=== PATIENT | female | born 1970 | race African-American/Black ===

== ENCOUNTER 2018-08-24 10:19 | Inpatient (IN) | payer OTHER ==
[2018-08-24] MEDS: LACTATED RINGER'S 1,000 ML IV ×3 (06:00→17:58)
[~2018-08-24 10:19] MED LIST: CEFAZOLIN 2 GM/50 ML (PMX) 50 ML IVPB
[2018-08-24 11:33] LABS: ADD MAN DIFF? NO
[2018-08-24 11:35] LABS: ABNORMAL IP MESSAGE 1; BASOPHIL # 0.1 10^3/ul (0.0-0.1); BASOPHILS % 1.2 % (0.0-2.0); EOSINOPHILS # 0.1 10^3/ul (0.0-0.5); EOSINOPHILS % 1.2 % (0.0-7.0); HEMATOCRIT 38.3 % (37.0-47.0); HEMOGLOBIN 11.5 g/dl (12.0-16.0); LYMPHOCYTES # 1.6 10^3/ul (0.8-2.9); LYMPHOCYTES % 36.3 % (15.0-51.0); MEAN CORPUSCULAR HEMOGLOBIN 21.5 pg (29.0-33.0); MEAN CORPUSCULAR VOLUME 71.5 fl (82.0-101.0); MEAN PLATELET VOLUME 8.6 fl (7.4-10.4); MONOCYTE # 0.3 10^3/ul (0.3-0.9); MONOCYTES % 7.2 % (0.0-11.0); NEUTROPHIL # 2.3 10^3/ul (1.6-7.5); NEUTROPHILS % 54.1 % (39.0-77.0); PLATELET COUNT 404 10^3/UL (140-415); RED BLOOD COUNT 5.36 10^6/ul (4.20-5.40); RED CELL DISTRIBUTION WIDTH 30.3 % (11.5-14.5)
[2018-08-24 11:35] LABS: WHITE BLOOD COUNT 4.3 10^3/ul (4.8-10.8)
[2018-08-24 11:47] LABS: HOLD TRANSMISSIONS 1; POSITIVE DIFF @See below
[2018-08-24 11:56] LABS: ANION GAP 12 (8-16); BILIRUBIN,TOTAL 0.4 mg/dl (0.2-1.3)
[2018-08-24 12:01] LABS: INR 0.99; PARTIAL THROMBOPLASTIN TIME 27.6 Sec (23.0-35.0); PROTIME 13.2 Sec (11.9-14.9)
[2018-08-24 12:08] LABS: ALANINE AMINOTRANSFERASE 24 IU/L (13-69); ALKALINE PHOSPHATASE 37 IU/L (42-121); ASPARTATE AMINO TRANSFERASE 24 IU/L (15-46); BILIRUBIN,INDIRECT 0.4 mg/dl (0-1.1); BLOOD UREA NITROGEN 8 mg/dl (7-20); CALCIUM 9.1 mg/dl (8.4-10.2); CARBON DIOXIDE 26 mmol/L (21-31); CHLORIDE 106 mmol/L (97-110); CREATININE 0.67 mg/dl (0.44-1.00); GLUCOSE 82 mg/dl (70-220); SODIUM 140 mmol/L (135-144); TOTAL PROTEIN 7.4 g/dl (6.1-8.1)
[2018-08-24 12:09] LABS: ALBUMIN 3.7 g/dl (3.3-4.9)
[2018-08-24] MEDS ORDERED: HYDROmorphONE 1 MG/5 ML IV SYRINGE IV ×2 (12:30)
[2018-08-24] MEDS ORDERED: ONDANSETRON 4 MG INJ IV (12:30)
[2018-08-24] MEDS ORDERED: ALBUTEROL 0.083% (NEB) 2.5 MG/3 ML AMP HHN (12:30)
[2018-08-24] MEDS ORDERED: MEPERIDINE 25 MG INJ IV (12:30)
[2018-08-24] MEDS ORDERED: DIPHENHYDRAMINE 50 MG INJ IV (12:30)
[2018-08-24] MEDS ORDERED: METOCLOPRAMIDE 10 MG INJ IV (12:30)
[2018-08-24] MEDS ORDERED: FENTAnyl 50 MCG/ML VIAL IV ×2 (12:30)
[2018-08-24] MEDS ORDERED: FENTAnyl 50 MCG/ML VIAL (13:06)
[2018-08-24] MEDS ORDERED: ROPIVACAINE 0.5 % 30 ML VIAL (13:06)
[2018-08-24] MEDS ORDERED: LIDOCAINE 100 MG SYRINGE (14:48)
[2018-08-24] MEDS ORDERED: CEFAZOLIN 1 GM INJ (14:48)
[2018-08-24] MEDS ORDERED: PROPOFOL 20 ML (14:48)
[2018-08-24] MEDS ORDERED: SUCCINYLCHOLINE CHLORIDE 100 MG/5 ML SYG IV (14:48)
[2018-08-24] MEDS ORDERED: ROCURONIUM 50 MG INJ (14:48)
[2018-08-24] MEDS ORDERED: SUGAMMADEX SODIUM 200 MG/2 ML VIAL IV (14:49)
[2018-08-24] MEDS: ONDANSETRON 4 MG INJ IV (16:55)
[2018-08-24] MEDS: HYDROmorphONE 1 MG/5 ML IV SYRINGE IV (16:59)
[2018-08-24] MEDS: FENTAnyl 50 MCG/ML VIAL IV (16:59)
[2018-08-24] MEDS: OXYCODONE/ACETAMINOPHEN (5/325) TAB PO ×2 (17:55→21:59)
[2018-08-24] MEDS: IBUPROFEN 600 MG TAB PO (18:49)
[2018-08-25] MEDS: IBUPROFEN 600 MG TAB PO ×4 (00:51→16:50)
[2018-08-25] MEDS: ONDANSETRON 4 MG INJ IV ×2 (00:52→10:24)
[2018-08-25] MEDS: LACTATED RINGER'S 1,000 ML IV ×3 (00:53→18:39)
[2018-08-25] MEDS: OXYCODONE/ACETAMINOPHEN (5/325) TAB PO ×2 (02:01→18:51)
[2018-08-25 05:14] LABS: ADD MAN DIFF? NO
[2018-08-25 05:18] LABS: WHITE BLOOD COUNT 13.2 10^3/ul (4.8-10.8)
[2018-08-25 05:18] LABS: ABNORMAL IP MESSAGE 1; BASOPHILS % 0.2 % (0.0-2.0); HEMATOCRIT 32.6 % (37.0-47.0); HEMOGLOBIN 9.7 g/dl (12.0-16.0); LYMPHOCYTES # 1.2 10^3/ul (0.8-2.9); LYMPHOCYTES % 9.3 % (15.0-51.0); MEAN CORPUSCULAR HEMOGLOBIN 21.6 pg (29.0-33.0); MEAN CORPUSCULAR HGB CONC 29.8 g/dl (32.0-37.0); MEAN CORPUSCULAR VOLUME 72.6 fl (82.0-101.0); MEAN PLATELET VOLUME 8.8 fl (7.4-10.4); MONOCYTE # 0.6 10^3/ul (0.3-0.9); MONOCYTES % 4.6 % (0.0-11.0); NEUTROPHIL # 11.3 10^3/ul (1.6-7.5); NEUTROPHILS % 85.5 % (39.0-77.0); PLATELET COUNT 348 10^3/UL (140-415); RED BLOOD COUNT 4.49 10^6/ul (4.20-5.40); RED CELL DISTRIBUTION WIDTH 29.6 % (11.5-14.5)
[2018-08-25 05:48] LABS: POSITIVE DIFF @See below
[2018-08-25 07:25] LABS: ANISOCYTOSIS 1+ (0-0); BURR CELLS 1+ (0-0); LYMPHOCYTES #M 1.3 10^3/ul (0.8-2.9); LYMPHOCYTES % (M) 10 % (15-51); MICROCYTOSIS 1+ (0-0); MONOCYTE #M 0.5 10^3/ul (0.3-0.9); MONOCYTES % (M) 4 % (0-11); PLATELET ESTIMATE NORMAL; POIKILOCYTOSIS 2+ (0-0); SEGMENTED NEUTROPHILS (M) % 86 % (39-77); SMUDGE%M 25 % (0-0); TARGET CELLS 1+ (0-0)
[2018-08-26] MEDS: IBUPROFEN 800 MG TAB PO ×5 (00:21→23:22)
[2018-08-26] MEDS: LACTATED RINGER'S 1,000 ML IV ×4 (01:51→17:17)
[2018-08-26] MEDS: OXYCODONE/ACETAMINOPHEN (5/325) TAB PO (05:15)
[2018-08-27] MEDS: IBUPROFEN 800 MG TAB PO ×3 (05:23→17:51)
[2018-08-27] MEDS: LACTATED RINGER'S 1,000 ML IV ×2 (08:00→16:00)
[2018-08-27] MEDS: DOCUSATE SODIUM 100 MG CAP PO (17:02)
== END 2018-08-27 19:35 | disposition home or self-care (01) | DRG 743 ==
LOC: REC 10:19 → MS1 17:36
PROC: 0UT90ZZ Resection of Uterus, Open Approach (ICD-10-PCS; principal; 2018-08-24 12:00)
PROC: 0UT70ZZ Resection of Bilateral Fallopian Tubes, Open Approach (ICD-10-PCS; 2018-08-24 12:00)
DX: D25.1 Intramural leiomyoma of uterus (principal); N92.0 Excessive and frequent menstruation with regular cycle; D64.9 Anemia, unspecified
CPT/HCPCS: 80053; 84703; 85025; 85610; 85730; 86850; 86900; 86901